=== PATIENT | female | born 1955 ===

== ENCOUNTER 2024-05-30 10:45 | Inpatient (IN) | payer OTHER ==
[~2024-05-30] VITALS: Ht 147.3 cm; Wt 64.4 kg
[2024-05-30] MEDS ORDERED: FARXIGA10 MG PO (13:35)
[2024-05-30] MEDS ORDERED: GLUMETZA500 MG PO (13:35)
[2024-05-30] MEDS ORDERED: KERENDIA20 MG PO (13:36)
[2024-05-30] MEDS ORDERED: MICARDIS80 MG PO (13:36)
[2024-05-30] MEDS ORDERED: HYDROCHLOROTHIA25 MG PO (13:36)
[2024-05-30] MEDS ORDERED: ALLOPURINOL100 MG PO (13:37)
[2024-05-30] MEDS ORDERED: TOPROL XL50 M1 PO (13:37)
[2024-05-30] MEDS ORDERED: ATORVASTATIN CA80 MG PO (13:37)
[2024-05-30] MEDS ORDERED: LANTUS SOL100 UNIT/1 (13:38)
[2024-05-30] MEDS ORDERED: OZEMPIC0.25 MG/02 (13:38)
[2024-05-30] MEDS ORDERED: MAXFE CAPLET1 EAC1 PO (13:39)
[2024-05-30] MEDS ORDERED: ACID CONTROLLER10 MG PO (13:39)
[2024-05-30] MEDS ORDERED: ROCALTROL0.25 MCG PO (13:39)
[2024-06-05] MEDS ORDERED: LIDOCAINE HCL 1%/EPINEPHRINE 20ML VIAL IJ ONE (08:00)
[2024-06-05] MEDS ORDERED: BUPIVACAINE HCL 30 ML VIAL IJ ONE (08:00)
[2024-06-05] MEDS ORDERED: METRONIDAZOLE/SODIUM CHLORIDE 500 MG/100 ML PIGGYBACK IV ONE (08:00)
[2024-06-05] MEDS ORDERED: CEFTRIAXONE SODIUM 2,000 MG VIAL IV ONE (08:00)
[2024-06-05] MEDS ORDERED: RINGERS SOLUTION,LACTATED 1,000 ML IV SCH (09:15)
[2024-06-05] MEDS ORDERED: OxyCODONE HCL 5 MG TABLET (ROXICODONE) PO PRN (09:15)
[2024-06-05] MEDS ORDERED: MORPHINE SULFATE 4 MG/ML CARTRIDGE IV PRN (09:15)
[2024-06-05] MEDS ORDERED: ONDANSETRON HCL 2 MG/ML VIAL IV PRN (09:15)
[2024-06-05 11:35] LABS: HEMATOCRIT 33.5 % (36.0-45.00); MEAN CELL VOLUME 94.9 fL (80.00-100.00); PLATELET COUNT 171 K/uL (150-450); RED BLOOD COUNT 3.53 M/uL (4.00-6.00); RED CELL DISTRIBUTION WIDTH 16.5 % (11.5-14.5)
[2024-06-05 11:36] LABS: HEMOGLOBIN 10.7 g/dL (12.0-15.00); MEAN CORPUSCULAR HEMOGLOBIN 30.3 pg (27.00-32.0)
[2024-06-05] MEDS ORDERED: MORPHINE SULFATE 4 MG/ML VIAL IV ONE (11:40)
[2024-06-05] MEDS ORDERED: SIMETHICONE 125 MG CAPSULE PO SCH (13:00)
[2024-06-05] MEDS ORDERED: HYOSCYAMINE SULFATE 0.125 MG TAB.SUBL SL SCH (13:00)
[2024-06-05 13:06] VITALS: BP 154/70; O2SAT 98
[2024-06-05] MEDS ORDERED: INSULIN LISPRO 1,000 UNIT/10 ML UNITS SUBCUTANEO PRN (13:30)
[2024-06-05] MEDS ORDERED: DEXTROSE 50 % IN WATER 0.5 G/ML DISP.SYRIN IV PRN (13:30)
[2024-06-05] MEDS ORDERED: hydrALAZINE HCL 20 MG VIAL IV PRN (13:45)
[2024-06-05] MEDS ORDERED: ACETAMINOPHEN 500 MG GEL..CAP PO SCH (14:00)
[2024-06-05 14:46] VITALS: O2SAT 97
[2024-06-05 16:00] VITALS: BP 161/70; O2SAT 98
[2024-06-05 16:55] LABS: ABG PH 7.332 (7.35-7.45); ABG PO2 70.1 mmHg (80-100); ABG pCO2 36.2 mmHg (35-45); BASE EXCESS -6.4 mmol/l; BICARBONATE 18.7 mmol/l (23-25); Tco2 19.8 mmol/l
[2024-06-05 16:59] LABS: o2 21 %; puncture site BRADIAL LEFT
[2024-06-05] MEDS ORDERED: GABAPENTIN 300 MG CAPSULE PO SCH (17:00)
[2024-06-05] MEDS ORDERED: POLYETHYLENE GLYCOL 3350 17 GM BLIST.PACK PO SCH (17:00)
[2024-06-05] MEDS ORDERED: CELECOXIB 200 MG CAPSULE PO SCH (17:00)
[2024-06-05] MEDS ORDERED: METOCLOPRAMIDE HCL 5 MG/ML VIAL IV SCH (17:00)
[2024-06-05 17:27] VITALS: O2SAT 96
[2024-06-05 20:25] VITALS: O2SAT 96
[2024-06-05] MEDS ORDERED: FAMOTIDINE/PF 20 MG/2 ML VIAL IV PUSH SCH (21:00)
[2024-06-06] VITALS (10 sets, daily range): BP systolic 121–170; BP diastolic 60–85; O2SAT 94–100
[2024-06-06 07:35] LABS: HEMATOCRIT 30.2 % (36.0-45.00); HEMOGLOBIN 10.1 g/dL (12.0-15.00); MEAN CORPUSCULAR HEMOGLOBIN 31.1 pg (27.00-32.0); MEAN CORPUSCULAR HGB CONC 33.4 g/dl (32.0-36.0); PLATELET COUNT 155 K/uL (150-450); RED BLOOD COUNT 3.25 M/uL (4.00-6.00); RED CELL DISTRIBUTION WIDTH 16.6 % (11.5-14.5)
[2024-06-06 08:52] LABS: CALCIUM 8.7 mg/dL (8.5-10.1); CREATININE SERUM 1.6 mg/dL (0.55-1.02); GFR 32.15; PHOSPHOROUS 3.2 mg/dL (2.5-4.9)
[2024-06-06 08:53] LABS: MAGNESIUM 1.4 mg/dL (1.8-2.4)
[2024-06-06] MEDS ORDERED: LACTULOSE 20 G/30 ML BLIST.PACK PO SCH (09:00)
[2024-06-06] MEDS ORDERED: TELMISARTAN 80 MG PO SCH (09:00)
[2024-06-06] MEDS ORDERED: ALLOPURINOL 100 MG TABLET PO SCH (09:00)
[2024-06-06] MEDS ORDERED: METOPROLOL SUCCINATE 50 MG TAB.SR.24H PO SCH (09:00)
[2024-06-06] MEDS ORDERED: CHLORTHALIDONE 25 MG PO SCH (09:00)
[2024-06-06] MEDS ORDERED: LACTOBACILLUS ACIDOPHILUS 1 CAP CAP PO SCH (09:00)
[2024-06-06] MEDS ORDERED: SOD FERRIC GLUC COMPLX/SUCROSE 62.5 MG in 0.9 % SODIUM CHLORIDE 50 ML IV SCH (09:18)
[2024-06-06] MEDS ORDERED: MAGNESIUM SULFATE IN WATER 50 ML IV NR (10:00)
[2024-06-06] MEDS ORDERED: ENOXAPARIN SODIUM 40 MG/0.4 ML SYRINGE SUBCUTANEO SCH (17:00)
[2024-06-06] MEDS ORDERED: INSULIN GLARGINE,HUM.REC.ANLOG 1,000 UNITS/10 ML UNITS SUBCUTANEO STA (19:51)
[2024-06-07 00:07] VITALS: BP 108/63; O2SAT 96
[2024-06-07 02:00] VITALS: O2SAT 95
[2024-06-07 06:01] VITALS: O2SAT 90
[2024-06-07 07:14] LABS: HEMATOCRIT 29.3 % (36.0-45.00); HEMOGLOBIN 9.8 g/dL (12.0-15.00); MEAN CELL VOLUME 93.5 fL (80.00-100.00); MEAN CORPUSCULAR HEMOGLOBIN 31.3 pg (27.00-32.0); MEAN CORPUSCULAR HGB CONC 33.6 g/dl (32.0-36.0); PLATELET COUNT 155 K/uL (150-450); RED BLOOD COUNT 3.13 M/uL (4.00-6.00); RED CELL DISTRIBUTION WIDTH 16.6 % (11.5-14.5)
[2024-06-07 07:44] LABS: CALCIUM 9.6 mg/dL (8.5-10.1); CREATININE SERUM 1.44 mg/dL (0.55-1.02); GFR 36.31; MAGNESIUM 2.2 mg/dL (1.8-2.4); PHOSPHOROUS 2.9 mg/dL (2.5-4.9); POTASSIUM 4.64 mEq/L (3.5-5.1)
[2024-06-07 09:00] VITALS: BP 152/83; O2SAT 97
[2024-06-07] MEDS ORDERED: ENOXAPARIN SODIUM 40 MG/0.4 ML SYRINGE SUBCUTANEO SCH (09:00)
[2024-06-07 09:27] VITALS: O2SAT 97
== END 2024-06-07 13:05 | disposition home or self-care (01) | DRG 330 ==
LOC: O/R 06-05 05:17 → SURH 06-05 10:45 → SURG 06-05 11:26 → SURH 06-05 18:45 → SURG 06-07 13:05
PROVIDERS: Internal Medicine Geriatric Medicine; ADMIT Colon & Rectal Surgery; ATTEND Colon & Rectal Surgery
PROC: 0DBP4ZZ Excision of Rectum, Percutaneous Endoscopic Approach (ICD-10-PCS; 2024-06-05)
PROC: 07BC4ZX Excision of Pelvis Lymphatic, Percutaneous Endoscopic Approach, Diagnostic (ICD-10-PCS; 2024-06-05)
PROC: 4A12X4Z Monitoring of Cardiac Electrical Activity, External Approach (ICD-10-PCS; 2024-06-05)
PROC: 0DTN4ZZ Resection of Sigmoid Colon, Percutaneous Endoscopic Approach (ICD-10-PCS; principal; 2024-06-05 18:45)
DX: C18.6 Malignant neoplasm of descending colon (principal); K92.1 Melena; N18.30 Chronic kidney disease, stage 3 unspecified